=== PATIENT | male | born 1970 | race Caucasian/White ===

== ENCOUNTER 2017-03-30 01:40 | Emergency (ER) | payer OTHER ==
[~2017-03-30] VITALS: Ht 165.1 cm; Wt 100.0 kg
[~2017-03-30 01:40] MED LIST: ASPI-664 PO; CITA10TA84 PO; CLOP75TA27 PO; FAMO-96 PO; ISOS30TA5 PO; LOSA50TA6 PO; METO25TA7 PO
[2017-03-30 02:05] VITALS: Ht 165.1 cm; Wt 100.0 kg
[2017-03-30 02:39] LABS: ADD SCAN DIFF NO
[2017-03-30 02:41] LABS: BASOPHILS % 0.5 % (0.0-2.0); EOSINOPHILS # 0.1 10^3/ul (0.0-0.5); EOSINOPHILS % 1.9 % (0.0-7.0); HEMATOCRIT 40.2 % (42.0-52.0); HEMOGLOBIN 13.7 g/dl (14.0-18.0); LYMPHOCYTES # 3.2 10^3/ul (0.8-2.9); LYMPHOCYTES % 43.2 % (15.0-51.0); MEAN CORPUSCULAR HEMOGLOBIN 28.2 pg (29.0-33.0); MEAN CORPUSCULAR HGB CONC 34.1 g/dl (32.0-37.0); MEAN CORPUSCULAR VOLUME 82.9 fl (82.0-101.0); MEAN PLATELET VOLUME 9.4 fl (7.4-10.4); MONOCYTE # 0.4 10^3/ul (0.3-0.9); MONOCYTES % 5.7 % (0.0-11.0); NEUTROPHIL # 3.6 10^3/ul (1.6-7.5); NEUTROPHILS % 48.4 % (39.0-77.0); PLATELET COUNT 162 10^3/UL (140-415); RED BLOOD COUNT 4.85 10^6/ul (4.70-6.10); RED CELL DISTRIBUTION WIDTH 13.2 % (11.5-14.5); WHITE BLOOD COUNT 7.4 10^3/ul (4.8-10.8)
[2017-03-30] MEDS ORDERED: ALPRAZOLAM 0.25 MG TAB PO ONE (03:00)
[2017-03-30 03:01] LABS: INR 0.93; PROTIME 12.5 Sec (12.2-14.2)
[2017-03-30 03:02] LABS: PARTIAL THROMBOPLASTIN TIME 23.5 Sec (25.0-35.0)
[2017-03-30 03:06] LABS: ANION GAP 19 (8-16); BLOOD UREA NITROGEN 13 mg/dl (7-20); CALCIUM 9.3 mg/dl (8.4-10.2); CARBON DIOXIDE 24 mmol/L (21-31); CHLORIDE 103 mmol/L (97-110); CREATININE 1.01 mg/dl (0.61-1.24); GLUCOSE 138 mg/dl (70-220); POTASSIUM 3.8 mmol/L (3.5-5.1); SODIUM 142 mmol/L (135-144)
--- NOTE | 2017-03-30 03:41 | RADRPT ---
PROCEDURE: CHEST - 1 VIEW CLINICAL INDICATION: 47-year-old male with chest pain. TECHNIQUE: A single frontal AP portable view of the chest was performed. The images were reviewed on a PACS workstation. COMPARISON: Chest x-ray October 19, 2015. FINDINGS: The cardiomediastinal silhouette has a normal appearance. There is no evidence for an infiltrate. There is no evidence for congestive heart failure. There is no evidence for pneumothorax. The osseou s structures are intact. IMPRESSION: No evidence for active cardiopulmonary disease. .J Carlos Dickinson MD, MD Date Time Electronically viewed and signed by .J Carlos Dickinson MD, on 03/30/2017 03:41 .M/
[2017-03-30 03:49] LABS: TROPONIN-I < 0.012 ng/ml (0.00-0.12)
[2017-03-30 04:20] VITALS: BP 115/75; PULSE 72; RESP 18
[2017-03-30] MEDS ORDERED: CEPH-443 PO (04:24)
[2017-03-30] MEDS ORDERED: FLUC150T17 PO (04:24)
--- NOTE | 2017-03-30 04:31 | ERD ---
ER Documentation Chief Complaint Date/Time DATE: 03/30/17 TIME: 04:25 Chief Complaint Pt c/o SOB and s/s similar to TN last year HPI Is 47-year-old male presents emergency room because he has had bilateral leg numbness for 3 hours as well as some mild shortness of breath. Denies any chest pain. States that he came to the emergency room because he was drinking out with his and he went home and got anxious that he was maybe having a hard event although he did have severe chest pain the first time and this is not similar to his other presentation. ROS All systems reviewed and are negative except as per history of present illness. Medications Home Meds Active Scripts Fluconazole* (Diflucan*) 150 Mg Tablet, 150 MG PO ONCE, #1 TAB Prov:BK VIZCARRA DO 03/30/17 Cephalexin* (Keflex*) 500 Mg Capsule, 500 MG PO QID for 7 Days, CAP Prov:ZACKERYBK DO 03/30/17 Aspirin* (Aspirin* EC) 81 Mg Tabec, 81 MG PO DAILY for 30 Days Prov:EFREN ROBLES 10/20/15 Famotidine* (Pepcid*) 20 Mg Tablet, 20 MG PO BID, #60 TAB Prov:EFREN ROBLES F 10/20/15 Reported Medications Isosorbide Mononitrate* (Isosorbide Mononitrate*) 30 Mg Tab.er.24h, 30 MG PO DAILY, TAB 10/19/15 Metoprolol Succinate* (Toprol XL*) 25 Mg Tab.sr.24h, 25 MG PO DAILY, #30 TAB 10/19/15 Losartan Potassium* (Losartan Potassium*) 50 Mg Tablet, 50 MG PO DAILY, TAB 10/19/15 Clopidogrel Bisulfate (Clopidogrel) 75 Mg Tablet, 75 MG PO DAILY, #30 TAB 10/19/15 Citalopram Hydrobromide* (Citalopram Hydrobromide*) 10 Mg Tablet, 10 MG PO DAILY , #30 TAB 10/19/15 Allergies Allergies: Coded Allergies: No Known Allergy (Unverified , 10/19/15) PMhx/Soc Anesthesia Reaction: No Hx Neurological Disorder: No Hx Respiratory Disorders: No Hx Cardiac Disorders: Yes (HTN HIGH CHOLESTEROL [place] WITH STENT ) Hx Psychiatric Problems: Yes (DEPRESSION) Hx Miscellaneous Medical Probl: No Hx Alcohol Use: Yes (socially) Hx Substance Use: No Hx Tobacco Use: Yes Smoking Status: Former smoker Physical Exam Vitals Vital Signs Date Time Temp Pulse Resp B/P Pulse Ox O2 Delivery O2 Flow Rate FiO2 03/30/17 04:20 72 18 115/75 99 Nasal Cannula 2.0 03/30/17 03:11 69 16 108/51 98 Nasal Cannula 2.0 03/30/17 02:39 Nasal Cannula 2 03/30/17 02:05 98.3 74 18 116/70 98 Physical Exam Const: [] No distress Head: Atraumatic Eyes: Normal Conjunctiva ENT: Normal External Ears, Nose and Mouth. Neck: Full range of motion..~ No meningismus. Resp: Clear to auscultation bilaterally Cardio: Regular rate and rhythm, no murmurs Abd: Soft, non tender, non distended. Normal bowel sounds Skin: Does have a rash with bumps appearance of bug bites on his dorsal thenar space of his right hand as well as his right neck and his left lateral thigh. Mild erythema. Back: No midline or flank tenderness Ext: No cyanosis, or edema Neur: Appears somewhat anxious. Psych: Normal Mood and Affect Result Diagram: 03/30/1721903/30/17219 Results 24 hrs Laboratory Tests Test 03/30/17 02:20 White Blood Count 7.410^3/ul Red Blood Count 4.8510^6/ul Hemoglobin 13.7g/dl Hematocrit 40.2% Mean Corpuscular Volume 82.9fl Mean Corpuscular Hemoglobin 28.2pg Mean Corpuscular Hemoglobin Concent 34.1g/dl Red Cell Distribution Width 13.2% Platelet Count 56678^3/UL Mean Platelet Volume 9.4fl Neutrophils % 48.4% Lymphocytes % 43.2% Monocytes % 5.7% Eosinophils % 1.9% Basophils % 0.5% Nucleated Red Blood Cells % 0.0/100WBC Neutrophils # 3.610^3/ul Lymphocytes # 3.210^3/ul Monocytes # 0.410^3/ul Eosinophils # 0.110^3/ul Basophils # 0.010^3/ul Nucleated Red Blood Cells # 0.010^3/ul Prothrombin Time 12.5Sec Prothrombin Time Ratio 1.0 INR International Normalized Ratio 0.93 Activated Partial Thromboplast Time 23.5Sec Sodium Level 142mmol/L Potassium Level 3.8mmol/L Chloride Level 103mmol/L Carbon Dioxide Level 24mmol/L Anion Gap 19 Blood Urea Nitrogen 13mg/dl Creatinine 1.01mg/dl Glucose Level 138mg/dl Calcium Level 9.3mg/dl Troponin I < 0.012ng/ml Current Medications Medications (Trade) Dose Ordered Sig/Toi Route PRN Reason Start Time Stop Time Status Last Admin Dose Admin Alprazolam (Xanax) 0.5 mg ONCE ONCE PO 03/30/17 03:00 03/30/17 03:01 DC 03/30/17 03:06 Procedures/MDM Cardiac was workup was performed in a patient who wanted to rule out a heart attack because he felt bilateral leg numbness. He had already taken aspirin previously. Acute coronary syndrome is very unlikely to have a low suspicion this patient has a normal EKG and negative troponin. He was given a Xanax which did resolve his symptoms. Still no chest pain i today.. He did, however , at length want to discuss his skin rash has been present for greater than 1 month. His doctor has tried various creams. The rash does not clear up. I am going to discharge him with Keflex in case there is a bacterial infection component as well as a Diflucan tablet. Giving him primary care follow-up in the next 1-2 days and instructions to obtain outpatient echocardiogram to check his cardiac status. Am giving him strict return precautions to the ER for any chest pain. EKG interpretation: Normal sinus rhythm rate of 72, normal axis, normal intervals, no ST or T-wave changes concerning for acute ischemia. 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 No arrhythmia Chest x-ray interpretation: I see no acute process. I see no pneumothorax, no infiltrate, no pulmonary edema, no fractures Departure Diagnosis: Primary Impression: Dermatitis Additional Impressions: Shortness of breath Bilateral leg paresthesia Condition: Stable Patient Instructions: Dermatitis, Non-Specific, Paraesthesias Additional Instructions: Call your primary care doctor TOMORROW for an appointment during the next 2-3 days.See the doctor sooner or return here if your condition worsens before your appointment time. BK VIZCARRA DO Mar 30, 2017 04:31
== END 2017-03-30 04:33 | disposition home or self-care (01) ==
LOC: E/R 01:40
DX: L30.9 Dermatitis, unspecified (principal); R20.2 Paresthesia of skin; I10 Essential (primary) hypertension; Z87.891 Personal history of nicotine dependence; Z79.82 Long term (current) use of aspirin; Z98.61 Coronary angioplasty status
CPT/HCPCS: 36415; 71010; 80048; 84484; 85025; 85610; 85730; 93005; Z7502; Z7610

== ENCOUNTER 2018-07-15 01:59 | Emergency (ER) | END 2018-07-15 08:35 | disposition home or self-care (01) ==